=== PATIENT | male | born 1930 | race Caucasian/White ===

== ENCOUNTER 2016-09-03 12:26 | Emergency (ER) | payer MEDICARE, BC ==
[2016-09-03] MEDS ORDERED: traMADol 50 MG Tab ONE (12:40)
[2016-09-03] MEDS ORDERED: Cyclobenzaprine 10 MG Tab ONE (12:40)
[2016-09-03 12:56] VITALS: BP 134/80
--- NOTE | 2016-09-05 13:29 | EDM.PDOC ---
ED HPI LOWER BACK PAIN/INJURY - General Chief Complaint: General Stated Complaint: RIGHT SIDE PAIN LOWER AB/BACK Time Seen by Provider: 09/03/16 13:00 Source: Reports: Patient History Limitations: Reports: No limitations - History of Present Illness INITIAL COMMENTS - FREE TEXT/NARRATIVE: This is an 86yo M here for right flank pain. Patient denies any other symptoms but does state that movement worsens his symptoms and he can feel a sharp stabbing 10/10 pain that lasts briefly. Timing/Duration: Reports: Hour(s): Location: Reports: lower Quality: Reports: Sharp Severity: severe Place: home Improves with: Reports: None Worsens with: Reports: Movement - Related Data Allergies/ADRs: Allergies Allergy/AdvReac Type Severity Reaction Status Date / Time Sulfa (Sulfonamide Allergy Chest Pain Verified 02/16/16 00:14 Antibiotics) Home Meds: Home Meds Ciprofloxacin in D5W [Ciprofloxacin-D5W] 250 mg PO Q12H #20 cap 02/16/16 [Rx] PARoxetine [Paxil] 10 mg PO DAILY 02/16/16 [History] Past Medical History HEENT History: Reports: Hard of hearing, Impaired vision, Other (see below) Other HEENT History: Goiter Cardiovascular History: Reports: None Respiratory History: Reports: None Gastrointestinal History: Reports: None Genitourinary History: Reports: Prostate disorder, Renal calculus Psychiatric History: Reports: Anxiety Endocrine/Metabolic History: Reports: Other (see below) Other Endocrine/Metabolic History: Goiter Oncologic (Cancer) History: Reports: Prostate - Infectious Disease History Infectious Disease History: Reports: Chicken pox - Past Surgical History HEENT Surgical History: Reports: Tonsillectomy GI Surgical History: Reports: Colonoscopy Male Surgical History: Reports: Lithotripsy (ESWL), Prostatectomy Other Musculoskeletal Surgeries/Procedures:: no injuries from the falls reported. through the years back pain intermittantly with chiropractic intervention. no past PT intervention Other Oncologic Surgeries/Procedures: "bladder and prostate cancer" reported Social & Family History - Tobacco Use Smoking Status *Q: Former Smoker Years of Tobacco use: 40 Packs/Tins Daily: 1 Used Tobacco, but Quit: Yes Month Tobacco Last Used: 2005 - Alcohol Use Days Per Week of Alcohol Use: 2 Number of Drinks Per Day: 1 Total Drinks Per Week: 2 - Recreational Drug Use Recreational Drug Use: No ED ROS GENERAL - Review of Systems Review Of Systems: ROS reveals no pertinent complaints other than HPI. ED EXAM,LOWER BACK PAIN/INJURY - Physical Exam Exam: See Below (reproducible localized area of pain right lower back at iliac crest) Exam Limited By: No limitations General Appearance: alert, WD/WN, no apparent distress Ears: normal external exam Nose: normal inspection Throat/Mouth: Normal inspection Head: atraumatic, normocephalic Neck: normal inspection Respiratory/Chest: no respiratory distress, lungs clear, normal breath sounds Cardiovascular: normal peripheral pulses, regular rate, rhythm Back Exam: muscle spasm, other (muscle strain) Course - Vital Signs Last Recorded V/S: Last Vital Signs Temp 36.7 C 09/03/16 12:53 Pulse 89 09/03/16 12:53 Resp BP 134/80 09/03/16 12:53 Pulse Ox 98 09/03/16 12:53 - Orders/Labs/Meds Meds: Medications Discontinued Medications Generic Name Dose Route Start Last Admin Trade Name Freq PRN Reason Stop Dose Admin Cyclobenzaprine HCl 150 mg 09/03/16 12:40 Flexeril .ROUTE 09/03/16 12:41 .STK-MED ONE Tramadol HCl 500 mg 09/03/16 12:40 Ultram .ROUTE 09/03/16 12:41 .STK-MED ONE Departure - Departure Time of Disposition: 13:30 Disposition: Home, Self-Care 01 Condition: good Clinical Impression: Muscle strain Instructions: Cyclobenzaprine tablets, Back Pain, Adult, Tramadol tablets, Low Back Strain With Rehab-SportsMed Referrals: PCP,None [Primary Care Provider] - Forms: ED Department Discharge Additional Instructions: Take flexeril (cyclobenzaprine) 3 times a day daily with ibproufen every 6 hours. Only take flexeril at night if it makes you feel to sleepy or groggy during the day. Take 1 tab tramdaol (50mg) every 6 hours as needed for pain. Alternate with the flexeril and ibproufen
== END 2016-09-03 13:15 | disposition home or self-care (01) ==
LOC: LB.ED 12:26
DX: S39.011A Strain of muscle, fascia and tendon of abdomen, initial encounter (principal); M62.838 Other muscle spasm; F41.9 Anxiety disorder, unspecified; Z88.2 Allergy status to sulfonamides; Z98.890 Other specified postprocedural states; Z87.891 Personal history of nicotine dependence; X58.XXXA Exposure to other specified factors, initial encounter
CPT/HCPCS: 99283; A9270

== ENCOUNTER 2016-09-23 17:10 | Emergency (ER) | payer MEDICARE, BC ==
[2016-09-23 17:54] VITALS: BP 113/77
[2016-09-23] MEDS ORDERED: Diphtheria/Tetanus Toxoids,Adult (Td) 0.5 ML SDV IM ONE (18:07)
--- NOTE | 2016-09-23 18:13 | EDM.PDOC ---
ED HPI GENERAL MEDICAL PROBLEM - General Chief Complaint: General Stated Complaint: Fish hook Time Seen by Provider: 09/23/16 17:45 Source of Information: Reports: Patient History Limitations: Reports: No limitations - History of Present Illness INITIAL COMMENTS - FREE TEXT/NARRATIVE: Pt was fishing and accidental got fish hook stuck in the right middle finger. mild pain in the finger. Does not know when was the last tetanus shot. No other injuries. - Related Data Allergies Allergy/AdvReac Type Severity Reaction Status Date / Time Sulfa (Sulfonamide Allergy Chest Pain Verified 09/23/16 17:27 Antibiotics) Home Meds: Home Meds Ciprofloxacin in D5W [Ciprofloxacin-D5W] 250 mg PO Q12H #20 cap 02/16/16 [Rx] PARoxetine [Paxil] 10 mg PO DAILY 02/16/16 [History] Past Medical History HEENT History: Reports: Hard of hearing, Impaired vision, Other (see below) Other HEENT History: Goiter Cardiovascular History: Reports: None Respiratory History: Reports: None Gastrointestinal History: Reports: None Genitourinary History: Reports: Prostate disorder, Renal calculus Psychiatric History: Reports: Anxiety Endocrine/Metabolic History: Reports: Other (see below) Other Endocrine/Metabolic History: Goiter Oncologic (Cancer) History: Reports: Prostate - Infectious Disease History Infectious Disease History: Reports: Chicken pox - Past Surgical History HEENT Surgical History: Reports: Cataract surgery, Tonsillectomy GI Surgical History: Reports: Colonoscopy Male Surgical History: Reports: Lithotripsy (ESWL), Prostatectomy Other Musculoskeletal Surgeries/Procedures:: no injuries from the falls reported. through the years back pain intermittantly with chiropractic intervention. no past PT intervention Other Oncologic Surgeries/Procedures: "bladder and prostate cancer" reported Social & Family History - Tobacco Use Smoking Status *Q: Former Smoker Years of Tobacco use: 5 Packs/Tins Daily: 0.5 Used Tobacco, but Quit: Yes Month Tobacco Last Used: 2005 - Alcohol Use Days Per Week of Alcohol Use: 2 Number of Drinks Per Day: 1 Total Drinks Per Week: 2 - Recreational Drug Use Recreational Drug Use: No ED ROS GENERAL - Review of Systems Review Of Systems: See Below Constitutional: Denies: fever, chills HEENT: Denies: Contact Lenses, Rhinitis, Sinus problem Respiratory: Denies: Shortness of Breath, Cough, Sputum Cardiovascular: Denies: Chest pain, Lightheadedness GI/Abdominal: Denies: Abdominal pain, Nausea, Vomiting : Denies: discharge, dysuria Skin: Denies: pruritis, rash ED EXAM, GENERAL - Physical Exam Exam: See Below Exam Limited By: No limitations General Appearance: alert, WD/WN, no apparent distress Eye Exam: bilateral eye: EOMI, PERRL Ears: normal external exam, normal canal, hearing grossly normal, normal TMs Ear Exam: bilateral ear: auricle normal, canal normal, TM normal Head: atraumatic, normocephalic Neck: normal inspection, supple, non-tender, full range of motion Respiratory/Chest: no respiratory distress, lungs clear, normal breath sounds, no accessory muscle use, chest non-tender Cardiovascular: normal peripheral pulses, regular rate, rhythm, no edema, no gallop, no JVD, no murmur, no rub Extremities: normal inspection, normal range of motion, non-tender, no pedal edema, normal capillary refill, other (Right middle finger: there is fish hook embedded in the distal phalynx of the finger. mild tenderness around the hook.) Course - Vital Signs Text/Narrative:: The fish hook was removed under aseptic precautions under local anesthesia. Pt tolerated the procedure well. Simple antibiotic dressing done. Advised to keep the wound clean. Also he did receive tetanus injection today. Wound care discussed . Infection precautions discussed. Followup in the emergency room or clinic if there is infection or worsening pain in the finger. Last Recorded V/S: Last Vital Signs Temp 97.3 F 09/23/16 17:52 Pulse 76 09/23/16 17:52 Resp 16 09/23/16 17:52 BP 113/77 09/23/16 17:52 Pulse Ox 95 09/23/16 17:52 - Orders/Labs/Meds Orders: Active Orders 24 hr Category Date Time Status Vaccines to be Administered [RC] PER UNIT ROUTINE Care 09/23/16 18:07 Ordered Diphtheria/Tetanus Tox,Adult [Tenivac] Med 09/23/16 18:07 Once 0.5 ml IM .ONCE ONE Medication Orders Tetanus/Diphtheria Toxoids (Tenivac) 0.5 ml IM .ONCE ONE Stop: 09/23/16 18:08 Meds: Medications Generic Name Dose Route Start Last Admin Trade Name Freq PRN Reason Stop Dose Admin Tetanus/Diphtheria Toxoids 0.5 ml 09/23/16 18:07 Tenivac IM 09/23/16 18:08 .ONCE ONE Departure - Departure Time of Disposition: 18:25 Disposition: Home, Self-Care 01 Condition: good Clinical Impression: Fish hook injury of finger of right hand Forms: ED Department Discharge - Problem List & Annotations (1) Fish hook injury of finger of right hand SNOMED Code(s): 74765278 Code(s): S69.91XA - UNSP INJURY OF RIGHT WRIST, HAND AND FINGER(S), INIT ENCNTR Status: Acute Current Visit: Yes - Problem List Review Problem List Initiated/Reviewed/Updated: Yes - My Orders Last 24 Hours: My Active Orders 09/23/16 18:07 Vaccines to be Administered [RC] PER UNIT ROUTINE Diphtheria/Tetanus Tox,Adult [Tenivac] 0.5 ml IM .ONCE ONE - Assessment/Plan Last 24 Hours: My Active Orders 09/23/16 18:07 Vaccines to be Administered [RC] PER UNIT ROUTINE Diphtheria/Tetanus Tox,Adult [Tenivac] 0.5 ml IM .ONCE ONE Assessment:: Fish hook in right middle finger Plan: The fish hook was removed under aseptic precautions under local anesthesia. Pt tolerated the procedure well. Simple antibiotic dressing done. Advised to keep the wound clean. Also he did receive tetanus injection today. Wound care discussed . Infection precautions discussed. Followup in the emergency room or clinic if there is infection or worsening pain in the finger.
== END 2016-09-23 18:30 | disposition home or self-care (01) ==
LOC: LB.ED 17:10
DX: S69.91XA Unspecified injury of right wrist, hand and finger(s), initial encounter (principal); F41.9 Anxiety disorder, unspecified; Z23 Encounter for immunization; Z98.890 Other specified postprocedural states; Z98.49 Cataract extraction status, unspecified eye; Z88.2 Allergy status to sulfonamides; W45.8XXA Other foreign body or object entering through skin, initial encounter
CPT/HCPCS: 90471; 90714; 99282; 99283-25

== ENCOUNTER 2016-11-19 16:14 | Emergency (ER) | payer MEDICARE, BC ==
--- NOTE | 2016-11-19 17:17 | EDM.PDOC ---
ED HPI GENERAL MEDICAL PROBLEM - General Chief Complaint: General Stated Complaint: confusion Time Seen by Provider: 11/19/16 16:45 Source of Information: Reports: Patient History Limitations: Reports: No Limitations - History of Present Illness INITIAL COMMENTS - FREE TEXT/NARRATIVE: According to daughter , patient lives by himself and has had fall last night and has had a cut in the back of the scalp and bleed. She claims he has been c/ o headache and seems confused. No slurred speech. no difficulty with walking, no weakness in his extremities. No tingling or numbness. No blurry vision. Pt has had a fall about 2 wks ago and had a laceration over the right elbow, which apparently was infected and just done with keflex. He has a fever of 100.7F. Does c/o pain in his right elbow, but can move his elbow without any discomfort. No cough, abdominal pain, no nausea or vomiting. No other complaints. Onset Date: 11/18/16 Severity: Mild Improves with: Reports: None Worsens with: Reports: None Associated Symptoms: Reports: Confusion, Fever/Chills, Headaches. Denies: Chest Pain, Cough, Nausea/Vomiting, Rash, Seizure, Shortness of Breath, Syncope , Weakness - Related Data Allergies Allergy/AdvReac Type Severity Reaction Status Date / Time Sulfa (Sulfonamide Allergy Chest Pain Verified 11/19/16 16:36 Antibiotics) Home Meds: Home Meds Ciprofloxacin in D5W [Ciprofloxacin-D5W] 250 mg PO Q12H #20 cap 02/16/16 [Rx] PARoxetine [Paxil] 10 mg PO DAILY 02/16/16 [History] Past Medical History HEENT History: Reports: Hard of Hearing, Impaired Vision, Other (See Below) Other HEENT History: Goiter Cardiovascular History: Reports: None Respiratory History: Reports: None Gastrointestinal History: Reports: None Genitourinary History: Reports: Prostate Disorder, Renal Calculus Psychiatric History: Reports: Anxiety Endocrine/Metabolic History: Reports: Other (See Below) Other Endocrine/Metabolic History: Goiter Oncologic (Cancer) History: Reports: Prostate - Infectious Disease History Infectious Disease History: Reports: Chicken Pox - Past Surgical History HEENT Surgical History: Reports: Cataract Surgery, Tonsillectomy GI Surgical History: Reports: Colonoscopy Other Musculoskeletal Surgeries/Procedures:: no injuries from the falls reported. through the years back pain intermittantly with chiropractic intervention. no past PT intervention Other Oncologic Surgeries/Procedures: "bladder and prostate cancer" reported Social & Family History - Tobacco Use Smoking Status *Q: Former Smoker Years of Tobacco use: 5 Packs/Tins Daily: 0.5 Used Tobacco, but Quit: Yes Month Tobacco Last Used: 2005 - Alcohol Use Days Per Week of Alcohol Use: 2 Number of Drinks Per Day: 1 Total Drinks Per Week: 2 - Recreational Drug Use Recreational Drug Use: No ED ROS GENERAL - Review of Systems Review Of Systems: See Below Constitutional: Reports: Fever. Denies: Chills HEENT: Denies: Sinus Problem, Throat Pain, Throat Swelling Respiratory: Denies: Shortness of Breath, Wheezing, Cough, Sputum Cardiovascular: Denies: Chest Pain, Lightheadedness Endocrine: Denies: Fatigue GI/Abdominal: Denies: Abdominal Pain, Anorexia, Nausea, Vomiting : Denies: Dysuria, Flank Pain, Frequency Skin: Reports: Bruising, Erythema. Denies: Pruritis, Rash Neurological: Reports: Confusion, Headache. Denies: Dizziness, Numbness, Paresthesia, Syncope, Tingling, Tremors, Trouble Speaking, Weakness, Gait Disturbance ED EXAM, GENERAL - Physical Exam Exam: See Below Exam Limited By: No Limitations General Appearance: Alert, WD/WN, No Apparent Distress Eye Exam: Bilateral Eye: EOMI, PERRL Ears: Normal External Exam Ear Exam: Bilateral Ear: Auricle Normal, Canal Normal, TM normal Nose: Normal Inspection, Normal Mucosa, No Blood Throat/Mouth: Normal Inspection, Normal Lips, Normal Teeth, Normal Gums, Normal Oropharynx, Normal Voice, No Airway Compromise Head: Normocephalic, Other (ther is a hemostatic superifical laceration which is well aprroximated in the upper occipital region. Scabbed blood around. No erythema. No signs of infection). No: Facial Swelling, Facial Tenderness Neck: Normal Inspection, Supple, Non-Tender, Full Range of Motion Respiratory/Chest: No Respiratory Distress, Lungs Clear, Normal Breath Sounds, No Accessory Muscle Use, Chest Non-Tender Cardiovascular: Normal Peripheral Pulses, Regular Rate, Rhythm, No Edema, No Gallop, No JVD, No Murmur, No Rub Peripheral Pulses: 2+: Radial (L), Radial (R) Extremities: Pedal Edema, Other (right elbow: there is skin brusing all over the forearm and elbow. There is a irregular healing laceeration over the posterior elbow. Tenderness around the elbow to palpation and warmth felt. Good ROM at the elbow.) Neurological: Alert, Oriented, CN II-XII Intact, Normal Cognition, Normal Gait, Normal Reflexes, No Motor/Sensory Deficits Course - Vital Signs Text/Narrative:: Pt did have CT of the head Done, which shows a 3mm subdural hematoma in the right frontal region. His CBC is normal. Pt and daughter reassured that he has a small 3mm subdural hematoma. The injury was already about 18-20 hrs ago, the hematoma has not progressed. We will repeat CT head in next 24 hrs to make sure the hematoma is not progressing any further. I have advised not to use aspirin, advil or alleve for headache. Advised tylenol 500mg as needed. Also he has low grade fever, which probably is nonspecific , his white count is normal . HE does have bruising and secondary swelling of the right forearm and hand from recent laceration of the right elbow. There is localized infection, which should resolve with antibiotics ointment. He does not need oral antibiotics. Advised simple antibiotics dressing. Will repeat CT head tomorrow around 4PM. Pt advised to followup on Monday with Primary care provider. - Orders/Labs/Meds Orders: Active Orders 24 hr Category Date Time Status Head wo Cont [CT] Stat Exams 11/19/16 17:01 Taken Labs: Laboratory Tests 11/19/16 Range/Units 17:09 WBC 10.1 D (4.0-11.0) K/uL RBC 4.24 L (4.50-6.50) M/uL Hgb 12.7 L (13.0-18.0) g/dL Hct 37.0 L (40.0-54.0) % MCV 87 (76-96) fL MCH 30.0 (27.0-32.0) pg MCHC 34.3 (31.0-35.0) g/dL RDW 13.8 (11.0-16.0) % Plt Count 190 (150-400) K/uL MPV 9.9 (6.0-10.0) fL Neut % (Auto) 76.4 H (45.0-70.0) % Lymph % (Auto) 12.0 L (20.0-40.0) % Carbon % (Auto) 10.4 H (3.0-10.0) % Eos % (Auto) 0.9 L (1.0-5.0) % Baso % (Auto) 0.3 (0.0-0.5) % Neut # (Auto) 7.67 H (2.00-7.50) K/uL Lymph # (Auto) 1.21 L (1.50-4.00) K/uL Carbon # (Auto) 1.05 H (0.20-0.80) K/uL Eos # (Auto) 0.09 (0.04-0.40) K/uL Baso # (Auto) 0.03 (0.02-0.10) K/uL Departure - Departure Time of Disposition: 18:15 Disposition: Home, Self-Care 01 Condition: fair Clinical Impression: Subdural hematoma, Infection of left elbow - Discharge Information Referrals: PCP,None [Primary Care Provider] - Forms: ED Department Discharge Additional Instructions: Pt did have CT of the head Done, which shows a 3mm subdural hematoma in the right frontal region. His CBC is normal. Pt and daughter reassured that he has a small 3mm subdural hematoma. The injury was already about 18-20 hrs ago, the hematoma has not progressed. We will repeat CT head in next 24 hrs to make sure the hematoma is not progressing any further. I have advised not to use aspirin, advil or alleve for headache. Advised tylenol 500mg as needed. Also he has low grade fever, which probably is nonspecific , his white count is normal . HE does have bruising and secondary swelling of the right forearm and hand from recent laceration of the right elbow. There is localized infection, which should resolve with antibiotics ointment. He does not need oral antibiotics. Advised simple antibiotics dressing. Will repeat CT head tomorrow around 4PM. Pt advised to followup on Monday with Primary care provider. Care Plan Goals: Will come back tomorrow in the afternoon for another CT scan of the head between 4-5 pm. May take only plain Tylenol 500 mg every 4-6 hours when needed for headache. - Problem List & Annotations (1) Infection of left elbow SNOMED Code(s): 492458876, 551021841 Code(s): M00.9 - PYOGENIC ARTHRITIS, UNSPECIFIED Status: Acute Current Visit: Yes (2) Subdural hematoma SNOMED Code(s): 33139451 Code(s): I62.00 - NONTRAUMATIC SUBDURAL HEMORRHAGE, UNSPECIFIED Status: Acute Current Visit: Yes - Problem List Review Problem List Initiated/Reviewed/Updated: Yes - Assessment/Plan Assessment:: Small subdural hematoma Left elbow localized superficial infection Plan: Pt did have CT of the head Done, which shows a 3mm subdural hematoma in the right frontal region. His CBC is normal. Pt and daughter reassured that he has a small 3mm subdural hematoma. The injury was already about 18-20 hrs ago, the hematoma has not progressed. We will repeat CT head in next 24 hrs to make sure the hematoma is not progressing any further. I have advised not to use aspirin, advil or alleve for headache. Advised tylenol 500mg as needed. Head injury sign discussed. Also he has low grade fever, which probably is nonspecific , his white count is normal . HE does have bruising and secondary swelling of the right forearm and hand from recent laceration of the right elbow. There is localized infection, which should resolve with antibiotics ointment. He does not need oral antibiotics. Advised simple antibiotics dressing. Will repeat CT head tomorrow around 4PM. Pt advised to followup on Monday with Primary care provider.
[2016-11-19 21:29] VITALS: BP 126/68
--- NOTE | 2016-11-21 00:20 | CT ---
DATE OF SERVICE: 11/19/2016 CLINICAL DATA: Hit head by the dresser due to fall. UNENHANCED BRAIN CT Multislice acquisition through the brain without IV contrast was performed. No priors. There is significant motion artifact on the images through the base of the skull and middle cranial fossa. There is diffuse cerebral atrophy. There are periventricular lucencies bilaterally consistent with small vessel ischemic change. There is a crescentic shaped extra-axial CSF density in the right frontal parietal region consistent with a chronic subdural hematoma. It measures 4 mm in its maximum depth. No mass effect associated with it. No masses. No intracranial hemorrhage. No evidence of acute or subacute infarct. There is mucosal thickening in the ethmoid and frontal sinuses consistent with chronic sinusitis. No air-fluid levels. No osseous abnormalities. IMPRESSION: Abnormal exam. See above. The patient's physician was notified of the findings by telephone and by virtual radiologic preliminary radiology report. [id number] MTDD
== END 2016-11-19 18:15 | disposition home or self-care (01) ==
LOC: LB.ED 16:14
DX: S06.5X0A Traumatic subdural hemorrhage without loss of consciousness, initial encounter (principal); W19.XXXA Unspecified fall, initial encounter; L08.9 Local infection of the skin and subcutaneous tissue, unspecified; Z79.899 Other long term (current) drug therapy; Z87.891 Personal history of nicotine dependence; Z88.2 Allergy status to sulfonamides; Z91.81 History of falling
CPT/HCPCS: 36415; 70450; 85025; 99283; 99285-25

== ENCOUNTER 2016-12-16 13:03 | Emergency (ER) | payer MEDICARE, BC ==
[2016-12-16 13:41] VITALS: BP 133/77
== END 2016-12-16 14:20 | disposition critical access hospital (66) ==
LOC: LB.ED 13:03
DX: M79.651 Pain in right thigh (principal); F03.90 Unspecified dementia, unspecified severity, without behavioral disturbance, psychotic disturbance, mood disturbance, and anxiety; Z98.890 Other specified postprocedural states; Z88.2 Allergy status to sulfonamides; Z79.899 Other long term (current) drug therapy
CPT/HCPCS: 81001; 99284

== ENCOUNTER 2016-12-16 14:20 | Inpatient (IN) | payer SELFPAY ==
[2016-12-16] MEDS: levETIRAcetam 500 MG Tab PO SCH (20:21)
[2016-12-16] MEDS: Donepezil 5 MG Tab PO SCH (20:21)
[2016-12-16] MEDS: Acetaminophen 500 MG Tab PO PRN (20:21)
--- NOTE | 2016-12-17 01:21 | HP ---
The patient is admitted to respite care. CHIEF COMPLAINT: The patient enters the ER with a complaint of pain in his right leg, right thigh and the pain made it difficult for him to get up from a kneeling position. HISTORY OF PRESENT ILLNESS: The patient has had a recent subdural on the right in October of 2016 from a fall. He has a history of dementia and macular degeneration. He lives with his . His currently is under treatment for cancer. They do have a daughter nearby who is a social worker delinquency prevention who checks up on him. The patient presented to the ER today for placement as it has been very difficult on the family to maintain his care now that his is also very ill. The patient was therefore admitted to respite. As far as his leg goes, the patient had been working in his garden and when he went to get up, he had some discomfort in his right thigh, the pain has since resolved. This is not a new pain. He gets this every once in a while. As far as chronic medical problems, they are dementia and recent right subdural. MEDICATIONS: Include Aricept 5 mg p.o. at bedtime; Keppra 500 mg p.o. daily; Tylenol Extra Strength 500 mg q.4h. p.r.n. ALLERGIES: SULFA. REVIEW OF SYSTEMS: GENERAL: The patient denies any fever, weight loss, or fatigue. EYES: The patient denies any changes in vision. He does have some macular degeneration. EARS, NOSE, AND THROAT: No complaints. CARDIOVASCULAR: No complaints. RESPIRATORY: No coughing, wheezing, or shortness of breath. GI: No nausea, vomiting, diarrhea, constipation, or heartburn. : No dysuria. MUSCULOSKELETAL: No actual joint pain, however, he sometimes gets some pain in his thigh muscles. SKIN: No rashes or sores. NEURO: No headaches. No numbness. No focal weakness. PSYCH: No history of depression or anxiety. He does have some early dementia history. Family reports that he does have history with sundowning. PHYSICAL EXAMINATION: GENERAL: A well-developed, well-nourished male. He is alert and oriented to person, place, and has a general idea about the date. EYES: Normal conjunctiva, PERRLA, EOMI. ENT: TMs are normal bilaterally. He did have some wax on the left. NECK: Symmetrical. He has what appears to be a small goiter present. No bruits. LYMPH EXAM: Normal. LUNGS: Clear. HEART: Shows regular rate and rhythm. No murmurs, rubs, or gallops. ABDOMEN: Soft, nontender. No mass. No organomegaly. BACK: Without CVA or cord tenderness. EXTREMITIES: Show no clubbing or cyanosis and only trace edema bilaterally. No palpable cords. No palpable pain with in his lower extremities. ORTHO: Digits and nails appeared to be normal. His muscle tone and strength are normal. Joints show no inflammation or restriction of motion. SKIN: Shows no rashes or sores. NEURO EXAM: He does have a decreased gag. Otherwise, his cranial nerves appear to be intact. His DTRs are normal and symmetrical. He does have some frontal release. His Babinski is negative. PSYCH: His memory is spotty. His mood is appropriate. Judgment is spotty, and he is oriented to person, place, and general orientation to time. ASSESSMENT: The patient with: 1. Dementia. 2. Status post right subdural. 3. History of macular degeneration. PLAN: The patient will be admitted to respite for eventual long-term placement. He is followed by Dr. Moody, who will resume his care next business day. RENATE/YAZMIN GEORGINA
[2016-12-17] MEDS: Acetaminophen 500 MG Tab PO PRN (20:06)
[2016-12-17] MEDS: levETIRAcetam 500 MG Tab PO SCH (20:06)
[2016-12-17] MEDS: Donepezil 5 MG Tab PO SCH (20:06)
[2016-12-19] MEDS: Acetaminophen 500 MG Tab PO PRN (15:52)
--- NOTE | 2016-12-19 15:58 | PCM.PN ---
- General Info Date of Service: 12/19/16 Functional Status: Reports: tolerating diet, ambulating - Review of Systems General: Reports: Weakness Pulmonary: Reports: no symptoms Cardiovascular: Reports: No Symptoms Gastrointestinal: Reports: No symptoms Genitourinary: Reports: no symptoms Skin: Reports: no symptoms Neurological: Reports: Weakness, Other (Dementia) Psychiatric: Reports: no symptoms - Patient Data Vitals - most recent: Last Vital Signs Temp 36.8 C 12/18/16 20:00 Pulse 99 12/18/16 20:00 Resp 18 12/18/16 20:00 BP 128/74 12/18/16 20:00 Pulse Ox 99 12/18/16 20:00 Weight - most recent: 77.201 kg Med Orders - Current: Current Medications Acetaminophen (Tylenol Extra Strength) 500 mg PO Q4H PRN PRN Reason: Pain Last Admin: 12/19/16 15:52 Dose: 500 mg Donepezil HCl (Aricept) 5 mg PO BEDTIME FAIZAN Discontinued Medications Donepezil HCl (Aricept) 5 mg PO BEDTIME FAIZAN Last Admin: 12/17/16 20:06 Dose: 5 mg Levetiracetam (Keppra) 500 mg PO BEDTIME FAIZAN Last Admin: 12/17/16 20:06 Dose: 500 mg - Exam General: alert, no acute distress HEENT: Pupils equal Neck: supple Lungs: Clear to auscultation, Normal respiratory effort Cardiovascular: Regular Rate, Regular Rhythm Abdomen: bowel sounds present, soft, no tenderness Extremities: no tenderness/swelling Skin: warm, dry, intact Neurological: no new focal deficit Psy/Mental Status: alert, normal affect, normal mood - Problem List & Annotations (1) Dementia SNOMED Code(s): 61604855 Code(s): F03.90 - UNSPECIFIED DEMENTIA WITHOUT BEHAVIORAL DISTURBANCE Status: Chronic Priority: High Current Visit: Yes Qualifiers: Dementia type: vascular dementia (2) Weakness SNOMED Code(s): 73522989 Code(s): R53.1 - WEAKNESS Status: Chronic Priority: High Current Visit : Yes (3) Subdural hematoma SNOMED Code(s): 15269328 Code(s): I62.00 - NONTRAUMATIC SUBDURAL HEMORRHAGE, UNSPECIFIED Status: Chronic Priority: High Current Visit: Yes - Problem List Review Problem List Initiated/Reviewed/Updated: Yes - My Orders Last 24 Hours: My Active Orders 12/19/16 20:00 Donepezil [Aricept] 5 mg PO BEDTIME - Plan Plan:: Patient planning for discharge to care center tomorrow. We will have PT/OT evaluate. Patient counseled on plan of care and agrees at this time to go for physical therapy and rehabilitation during his stay in the care center.
[2016-12-19] MEDS ORDERED: Aluminum Hydroxide/Magnesium Hydroxide/Simethicone Susp 30 ML Cup ONE (16:34)
[2016-12-19] MEDS ORDERED: Magnesium Hydroxide 400 MG/5 ML Susp 30 ML Cup PO ONE (17:26)
[2016-12-19] MEDS ORDERED: Donepezil 5 MG Tab PO SCH (20:00)
[2016-12-20 19:20] VITALS: BP 106/65
== END 2016-12-20 18:05 | disposition home or self-care (01) | DRG 884 ==
LOC: LB.MS 14:20 → UNDOADMIN 14:20 → LB.MS 14:30 → UNDOADMIN 15:32 → LB.MS 15:32
PROVIDERS: ADMIT Internal Medicine; ATTEND Family Medicine
DX: F03.90 Unspecified dementia, unspecified severity, without behavioral disturbance, psychotic disturbance, mood disturbance, and anxiety (principal); I62.00 Nontraumatic subdural hemorrhage, unspecified; R53.1 Weakness; Z75.5 Holiday relief care
CPT/HCPCS: A9270-GY

== ENCOUNTER 2016-12-21 10:29 | Inpatient (IN) | payer MEDICARE, BC ==
--- NOTE | 2016-12-21 12:00 | PCM.HP ---
H&P History of Present Illness - General Date of Service: 12/21/16 Admit Problem/Dx: Admission Diagnosis/Problem Admission Diagnosis/Problem Hematoma Source of Information: Patient, Family - History of Present Illness Initial Comments - Free Text/Narative: This is a pleasant 86yo M admitted to the floor for increasing headache, confusion, and weakness of the legs. He was diagnosed with a subdural hematoma on November 18 that showed progression on his Head CT on November 20 and then increased progression on November 30 without further symptoms and family and patient elected for close observation and monitoring. Repeat CT was done on December 05 showing stable findings. The patient began to have increasing headaches , lower extremity weakness and confusion the past few days and another CT head was done showing a rebleed. Onset of Symptoms: Reports: Gradual Duration of Symptoms: Reports: Week(s): Location: Reports: Head Associated Symptoms: Reports: Confusion, Headaches, Weakness - Related Data Allergies/Adverse Reactions: Allergies Allergy/AdvReac Type Severity Reaction Status Date / Time Sulfa (Sulfonamide Allergy Chest Pain Verified 12/21/16 13:15 Antibiotics) Home Medications: Home Meds Acetaminophen [Tylenol Extra Strength] 500 mg PO Q6H PRN 12/21/16 [History] Donepezil [Aricept] 5 mg PO BEDTIME 12/21/16 [History] Past Medical History HEENT History: Reports: Hard of Hearing, Impaired Vision, Other (See Below) Other HEENT History: Goiter Cardiovascular History: Reports: None Respiratory History: Reports: None Gastrointestinal History: Reports: None Genitourinary History: Reports: Prostate Disorder, Renal Calculus Psychiatric History: Reports: Anxiety Endocrine/Metabolic History: Reports: Other (See Below) Other Endocrine/Metabolic History: Goiter Oncologic (Cancer) History: Reports: Prostate - Infectious Disease History Infectious Disease History: Reports: Chicken Pox - Past Surgical History HEENT Surgical History: Reports: Cataract Surgery, Tonsillectomy GI Surgical History: Reports: Colonoscopy Other Musculoskeletal Surgeries/Procedures:: no injuries from the falls reported. through the years back pain intermittantly with chiropractic intervention. no past PT intervention. fall status: with subdural hematoma communication on status with nursing staff today. vitals checked and orientation: 12/19/16 Other Oncologic Surgeries/Procedures: "bladder and prostate cancer" reported Social & Family History - Tobacco Use Smoking Status *Q: Former Smoker Years of Tobacco use: 5 Packs/Tins Daily: 0.5 Used Tobacco, but Quit: Yes Month Tobacco Last Used: jul Second Hand Smoke Exposure: No - Caffeine Use Caffeine Use: Reports: Coffee - Alcohol Use Days Per Week of Alcohol Use: 2 Number of Drinks Per Day: 1 Total Drinks Per Week: 2 - Recreational Drug Use Recreational Drug Use: No H&P Review of Systems - Review of Systems: Review Of Systems: See Below General: Reports: Weakness HEENT: Reports: Headaches Pulmonary: Reports: No Symptoms Cardiovascular: Reports: No Symptoms Gastrointestinal: Reports: No Symptoms Genitourinary: Reports: No Symptoms Musculoskeletal: Reports: No Symptoms Skin: Reports: No Symptoms Psychiatric: Reports: No Symptoms Neurological: Reports: Confusion, Weakness, Gait Disturbance Exam - Exam Exam: See Below - Vital Signs Weight: 77.201 kg - Exam General: Alert, Cooperative HEENT: PERRLA, Conjunctiva Clear Neck: Supple, Trachea Midline Lungs: Clear to Auscultation, Normal Respiratory Effort Cardiovascular: Regular Rate, Regular Rhythm Abdomen: Normal Bowel Sounds, Soft Back Exam: Normal Inspection Extremities: Normal Inspection Peripheral Pulses: 1+: Dorsalis Pedis (L), Dorsalis Pedis (R) Skin: Warm, Dry, Intact Neurological: Abnormal Gait Neuro Extensive - Mental Status: Alert, Normal Mood/Affect, Disorientation to Time Neuro Extensive - Motor, Sensory, Reflexes: Abnormal Motor Psychiatric: Alert, Normal Affect, Normal Mood - Patient Data Result Diagrams: 12/21/16 13:17 12/21/16 13:17 *Q Meaningful Use (ADM) - VTE *Q VTE Criteria *Q: - Stroke *Q Stroke Criteria *Q: - AMI *Q AMI Criteria *Q: - Problem List (1) Headache SNOMED Code(s): 87780738 ICD Code: R51 - HEADACHE Status: Acute Current Visit: Yes Qualifiers: Headache chronicity pattern: unspecified pattern Intractability: not intractable (2) Confusion SNOMED Code(s): 613637590 ICD Code: R41.0 - DISORIENTATION, UNSPECIFIED Status: Acute Priority: High Current Visit: Yes (3) Subdural hematoma SNOMED Code(s): 39940350 ICD Code: I62.00 - NONTRAUMATIC SUBDURAL HEMORRHAGE, UNSPECIFIED Status: Chronic Priority: High Current Visit: Yes (4) Weakness SNOMED Code(s): 68306093 ICD Code: R53.1 - WEAKNESS Status: Chronic Priority: High Current Visit : Yes Problem List Initiated/Reviewed/Updated: Yes Orders Last 24hrs: Active Orders 24 hr Category Date Time Status Patient Status [ADT] Routine ADT 12/21/16 11:33 Active Oxygen Therapy [RC] PRN Care 12/21/16 11:33 Active Up With Assistance [RC] ASDIRECTED Care 12/21/16 11:33 Active VTE/DVT Education [RC] Per Unit Routine Care 12/21/16 11:33 Active Vital Signs [RC] Q4H Care 12/21/16 11:33 Active OT Evaluation and Treatment [CONS] Routine Cons 12/21/16 12:00 Ordered PT Evaluation and Treatment [CONS] Routine Cons 12/21/16 12:00 Ordered Heart Healthy Diet [DIET] Diet 12/21/16 Dinner Ordered Head wo Cont [CT] Routine Exams 12/21/16 Taken CBC WITH AUTO DIFF [HEME] Routine Lab 12/21/16 11:33 Ordered COMPREHENSIVE METABOLIC PN,CMP [CHEM] Routine Lab 12/21/16 11:33 Ordered INR,PT,PROTHROMBIN TIME [COAG] Routine Lab 12/21/16 11:33 Uncollected Assessment/Plan Comment:: Patient admitted for close monitoring and observation. Patient and family to discuss plan of care and Neurosurgery intervention as discussed.
[2016-12-21] MEDS ORDERED: Acetaminophen 500 MG Tab PO PRN (14:49)
[2016-12-21] MEDS ORDERED: Magnesium Hydroxide 400 MG/5 ML Susp 30 ML Cup PO PRN (14:51)
[2016-12-21 17:07] VITALS: BP 114/64
--- NOTE | 2016-12-21 17:21 | CT ---
DATE OF SERVICE: 12/21/16 CLINICAL DATA: Nontraumatic subdural hemorrhage, unspecified UNENHANCED BRAIN CT: Comparison is made to a prior exam dated 12/05/16. A right-sided subdural hematoma is again seen. It has increased in volume from the prior exam and measured greater than 2.5 cm in its maximum thickness. There are hyperdense foci within it. This is consistent with a re-bleed. There is progressive mass effect associated with it and there is minimal midline shift to the left. The exam is otherwise unchanged. IMPRESSION: Increasing volume of right subdural hematoma with findings consistent with re-bleed and increasing mass effect. The patient's physician was notified of the finding by telephone and by [facility] preliminary radiology report. [id number] [facility]
--- NOTE | 2016-12-21 19:19 | PCM.DCSUM1 ---
Discharge Summary - Hospital Course Brief History: This is an 86yo M with a subdural hematoma rebleed and increasing confusion, weakness and headache the past few days admitted for close monitoring, and further management or transfer as needed and discussed with family. - Discharge Data Discharge Date: 12/21/16 Discharge Disposition: DC/Tfer to Acute Hospital 02 Condition: Good - Discharge Diagnosis/Problem(s) (1) Headache SNOMED Code(s): 99245523 ICD Code: R51 - HEADACHE Status: Acute Current Visit: Yes Qualifiers: Headache chronicity pattern: unspecified pattern Intractability: not intractable (2) Confusion SNOMED Code(s): 262433871 ICD Code: R41.0 - DISORIENTATION, UNSPECIFIED Status: Acute Priority: High Current Visit: Yes (3) Subdural hematoma SNOMED Code(s): 88245412 ICD Code: I62.00 - NONTRAUMATIC SUBDURAL HEMORRHAGE, UNSPECIFIED Status: Chronic Priority: High Current Visit: Yes (4) Weakness SNOMED Code(s): 94341102 ICD Code: R53.1 - WEAKNESS Status: Chronic Priority: High Current Visit : Yes - Patient Summary/Data Consults: Consultations 12/21/16 12:00 OT Evaluation and Treatment [CONS] Routine Please Evaluate and Treat. OT Reason for Consult: ADL's This query below is only for informational purposes and is not editable. Admission Diagnosis/Problem: Hematoma PT Evaluation and Treatment [CONS] Routine Please Evaluate and Treat. PT Reason for Consult: Ambulation This query below is only for informational purposes and is not editable. Admission Diagnosis/Problem: Hematoma - Discharge Plan Home Medications: Home Meds Acetaminophen [Tylenol Extra Strength] 500 mg PO Q6H PRN 12/21/16 [History] Donepezil [Aricept] 5 mg PO BEDTIME 12/21/16 [History] - Discharge Summary/Plan Comment DC Time >30 min.: Yes Discharge Summary/Plan Comment: Patient transfer to [facility] under Dr. Corona Neurosurgery. Patient is stable and after discussion with family, he will go via personal vehicle and daughter Lillian will drive to [place] and cherry picker operator [place] and continue to [place]. Family agree with plan of care. They will go to the [place] ER and Neurosurgery will be waiting. - General Info Date of Service: 06/21/17 Functional Status: Reports: tolerating diet - Review of Systems General: Reports: Weakness HEENT: Reports: headaches Pulmonary: Reports: no symptoms Cardiovascular: Reports: No Symptoms Gastrointestinal: Reports: No symptoms Musculoskeletal: Reports: no symptoms Skin: Reports: no symptoms Neurological: Reports: Confusion, Headache, Difficulty Walking, Weakness Psychiatric: Reports: no symptoms - Patient Data Vitals - Most Recent: Last Vital Signs Temp 36.7 C 12/21/16 17:00 Pulse 71 12/21/16 17:00 Resp 16 12/21/16 17:00 BP 114/64 12/21/16 17:00 Pulse Ox 98 12/21/16 17:00 Weight - Most Recent: 77.201 kg Lab Results - Last 24 hrs: Laboratory Results - last 24 hr 12/21/16 12/21/16 12/21/16 Range/Units 13:17 13:17 13:17 WBC 8.1 (4.0-11.0) K/uL RBC 4.35 L (4.50-6.50) M/uL Hgb 12.9 L (13.0-18.0) g/dL Hct 38.5 L (40.0-54.0) % MCV 89 (76-96) fL MCH 29.7 (27.0-32.0) pg MCHC 33.5 (31.0-35.0) g/dL RDW 14.5 (11.0-16.0) % Plt Count 162 (150-400) K/uL MPV 9.9 (6.0-10.0) fL Neut % (Auto) 70.0 (45.0-70.0) % Lymph % (Auto) 18.0 L (20.0-40.0) % [place] % (Auto) 9.5 (3.0-10.0) % Eos % (Auto) 2.1 (1.0-5.0) % Baso % (Auto) 0.4 (0.0-0.5) % Neut # (Auto) 5.66 (2.00-7.50) K/uL Lymph # (Auto) 1.46 L (1.50-4.00) K/uL [place] # (Auto) 0.77 (0.20-0.80) K/uL Eos # (Auto) 0.17 (0.04-0.40) K/uL Baso # (Auto) 0.03 (0.02-0.10) K/uL PT 10.4 (9.0-11.5) sec INR 1.0 (1.0-3.5) Sodium 141 (136-145) mmol/L Potassium 4.4 (3.5-5.1) mmol/L Chloride 103 (98-107) mmol/L Carbon Dioxide 30.0 (21.0-32.0) mmol/L Anion Gap 12.4 (5.0-15.0) mmol/L BUN 17 D (8-26) mg/dL Creatinine 0.83 (0.70-1.30) mg/dL Est Cr Clr Drug Dosing 68.47 mL/min Estimated GFR (MDRD) > 60 (>60) MLS/MIN BUN/Creatinine Ratio 20.5 (6-25) Glucose 125 H (74-100) mg/dL Calcium 10.0 (8.5-10.1) mg/dL Total Bilirubin 0.9 (0.0-1.0) mg/dL AST 18 (15-37) U/L ALT 18 (12-78) U/L Alkaline Phosphatase 116 (46-116) U/L Total Protein 6.8 (6.4-8.2) g/dL Albumin 3.4 (3.4-5.0) g/dL Globulin 3.4 (2.2-4.2) g/dL Albumin/Globulin Ratio 1.0 (0.8-2.0) Med Orders - Current: Current Medications Acetaminophen (Tylenol Extra Strength) 500 mg PO Q6H PRN PRN Reason: Pain Donepezil HCl (Aricept) 5 mg PO BEDTIME FAIZAN Levetiracetam (Keppra) 500 mg PO BID FAIZAN Magnesium Hydroxide (Milk Of Magnesia) 30 ml PO DAILY PRN PRN Reason: Constipation - Exam General: Reports: alert, cooperative, no acute distress HEENT: Reports: Pupils equal, Pupils reactive Neck: Reports: supple Lungs: Reports: Clear to auscultation, Normal respiratory effort Cardiovascular: Reports: Regular Rate, Regular Rhythm Abdomen: Reports: bowel sounds present, soft, no tenderness Back Exam: Reports: Normal Inspection Extremities: Reports: no edema Skin: Reports: warm, dry, intact Neurological: Reports: other (lower leg weakness b/l, confusion, headaches) Psy/Mental Status: Reports: alert, normal affect, normal mood *Q Meaningful Use (DIS) - VTE *Q VTE Criteria *Q: - Stroke *Q Stroke Criteria *Q: - AMI *Q AMI Criteria *Q:
[2016-12-21] MEDS ORDERED: Donepezil 5 MG Tab PO SCH (20:00)
[2016-12-21] MEDS ORDERED: levETIRAcetam 500 MG Tab PO SCH (20:00)
== END 2016-12-21 19:45 | DRG 66 ==
LOC: LB.CLINIC 10:29 → LB.MS 11:21 → UNDOADMIN 11:21 → LB.MS 11:33
PROVIDERS: ADMIT Family Medicine; ATTEND Family Medicine
DX: I62.00 Nontraumatic subdural hemorrhage, unspecified (principal); R53.1 Weakness; R41.0 Disorientation, unspecified; R51 Headache; Z85.46 Personal history of malignant neoplasm of prostate; Z85.51 Personal history of malignant neoplasm of bladder; H91.90 Unspecified hearing loss, unspecified ear; H54.7 Unspecified visual loss; Z87.891 Personal history of nicotine dependence; Z88.2 Allergy status to sulfonamides
CPT/HCPCS: 36415; 70450; 80053; 85025; 85610; 97165-GO

== ENCOUNTER 2016-12-28 09:29 | Inpatient (IN) | payer MEDICARE, BC ==
[2016-12-28] MEDS ORDERED: Tuberculin, PPD 5 Units/0.1 ML 1 ML MDV IDERM ONE (16:44)
[2016-12-28] MEDS ORDERED: Bisacodyl 10 MG Supp RECTAL PRN (16:47)
[2016-12-28] MEDS ORDERED: Calcium Carbonate 500 MG Tab.Chew PO PRN (16:47)
[2016-12-28] MEDS ORDERED: Polyethylene Glycol 3350 Powder 17 GM Packet PO PRN (16:47)
[2016-12-28] MEDS ORDERED: Aluminum Hydroxide/Magnesium Hydroxide/Simethicone Susp 30 ML Cup PO PRN (16:47)
[2016-12-28] MEDS ORDERED: Acetaminophen 325 MG Tab PO PRN (16:47)
[2016-12-28] MEDS: Donepezil 5 MG Tab PO SCH (18:33)
[2016-12-28] MEDS: QUEtiapine 25 MG Tab PO PRN (18:34)
--- NOTE | 2016-12-29 00:54 | HP ---
CHIEF COMPLAINT: The patient is transferred from [facility] after dionisio hole placed for subdural hematoma. The patient is transferred for swing bed. PAST MEDICAL HISTORY: 1. 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 2. Status post mechanical fall, 11/16. 3. Brain compression. 4. Subfalcine herniation, improved. 5. Encephalopathy. 6. Left-sided hemiparesis, improving. 7. History of prostate carcinoma, status post prostatectomy. HISTORY OF PRESENT ILLNESS: An 86-year-old gentleman who was transferred from [facility] today after evacuation by dionisio holes of a right acute on chronic subdural hematoma. This occurred from a fall apparently on November 18. The patient was transferred to [place] and evacuation was done. The patient had apparently worsening encephalopathy with left-sided weakness, and CT did reveal a 3 mm shift. This had improved postoperatively. Postoperatively, his left-sided weakness improved, his confusion is improving. Now transported back here due to gait imbalance and risk of being at home for physical therapy and continue strengthening. The patient currently does not have any complaints. MEDICATIONS UPON TRANSFER: Aricept 5 mg daily, milk thistle 1 tab daily, Senokot 2 tabs b.i.d., Tylenol Extra Strength 500 mg q.6 hours p.r.n. ALLERGIES: SULFA. FAMILY HISTORY: Noncontributory. SOCIAL HISTORY: He is . Prior to his October accident, was living in an apartment with his . Nonsmoker. REVIEW OF SYSTEMS: The patient's 12-point review of systems is negative. PHYSICAL EXAMINATION: GENERAL: A pleasant gentleman, in no apparent distress. VITAL SIGNS: Stable. NEUROLOGIC: The patient is alert, he is oriented to person but not place and cannot tell me the time. He does recall the president. He recalls 0/3 at 5 minutes. He can do serial 3' s quickly and accurately but has difficulty with serial 7's. Strength is symmetric in the upper and lower extremities. Gait was not tested. Reflexes are symmetric and brisk bilaterally. Cranial nerves III through XII are intact. Visual romero are not tested. HEENT : Exam is negative. There is no adenopathy or thyromegaly. CHEST: Clear. CARDIAC: Regular rate and rhythm without gallop or rub. ABDOMEN: Benign. : Exam deferred. Neurologic as above. IMPRESSION: 1. 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 2. Encephalopathy. 3. Left-sided weakness, improving. 4. Status post mechanical fall, 11/16. 5. History of prostatic carcinoma, status post prostatectomy. PLAN: The patient will be admitted into a swing bed. Physical therapy, occupational therapy, and hospice social worker. Continue his Aricept currently. The patient I do not believe is competent tonight to give me a code status, so will need to discuss this with family tomorrow. DVT prophylaxis, we will use compression stockings. Cannot use anticoagulation due to his dionisio hole and previous subdural. YULIA/YAZMIN GEORGINA
[2016-12-29] MEDS: Sennosides 8.6 MG Tab PO SCH ×3 (01:04→20:46)
[2016-12-29] MEDS: Donepezil 5 MG Tab PO SCH ×2 (01:04→20:46)
[2016-12-29] MEDS ORDERED: Pneumococcal Polyvalent-23 Vaccine 0.5 ML SDV IM ONE (18:53)
[2016-12-29] MEDS ORDERED: Sennosides 8.6 MG Tab ONE (20:48)
[2016-12-29] MEDS: LORazepam 0.5 MG Tab PO PRN (21:47)
[2016-12-30] MEDS: QUEtiapine 25 MG Tab PO PRN (04:50)
[2016-12-30] MEDS: Sennosides 8.6 MG Tab PO SCH ×2 (07:56→20:00)
[2016-12-30] MEDS: QUEtiapine 25 MG Tab PO SCH (20:00)
[2016-12-30] MEDS: Donepezil 5 MG Tab PO SCH (20:00)
[2016-12-31] MEDS: Sennosides 8.6 MG Tab PO SCH ×2 (08:00→20:23)
[2016-12-31] MEDS: Donepezil 5 MG Tab PO SCH (20:22)
[2016-12-31] MEDS: QUEtiapine 25 MG Tab PO SCH (20:23)
[2017-01-01] MEDS: Sennosides 8.6 MG Tab PO SCH ×2 (08:15→20:21)
[2017-01-01] MEDS: QUEtiapine 25 MG Tab PO SCH (20:21)
[2017-01-01] MEDS: Donepezil 5 MG Tab PO SCH (20:21)
[2017-01-02] MEDS: Sennosides 8.6 MG Tab PO SCH ×2 (09:29→21:00)
--- NOTE | 2017-01-02 12:10 | PCM.PN ---
- General Info Date of Service: 01/02/17 Subjective Update: Patient denies any complaints today. He is unable to recall where he is at today , and suggested it was '' then later ' then 2016 and was correct that it was December but unsure of the exact number. He denies any headache or pain. Denies any weakness or symptoms. Functional Status: Reports: tolerating diet, ambulating - Review of Systems General: Reports: No Symptoms HEENT: Reports: no symptoms Pulmonary: Reports: no symptoms Cardiovascular: Reports: No Symptoms Gastrointestinal: Reports: No symptoms Genitourinary: Reports: no symptoms Musculoskeletal: Reports: no symptoms Skin: Reports: no symptoms Neurological: Reports: Pre-Existing Deficit (weakness) Psychiatric: Reports: agitation (when discussing that he wants to go home) - Patient Data Vitals - most recent: Last Vital Signs Temp 36.2 C 01/02/17 08:00 Pulse 73 01/02/17 08:00 Resp 16 01/02/17 08:00 BP 102/65 01/02/17 08:00 Pulse Ox 96 01/02/17 08:00 Weight - most recent: 64.954 kg Med Orders - Current: Current Medications Acetaminophen (Tylenol) 650 mg PO Q4H PRN PRN Reason: Pain (Mild 1-3)/fever Al Hydroxide/Mg Hydroxide (Mag-Al Plus) 30 ml PO Q4H PRN PRN Reason: Nausea Bisacodyl (Dulcolax) 10 mg RECTAL DAILY PRN PRN Reason: Constipation Calcium Carbonate/Glycine (Tums) 500 mg PO Q2HR PRN PRN Reason: Abdominal Pain Donepezil HCl (Aricept) 5 mg PO BEDTIME [facility] Last Admin: 01/01/17 20:21 Dose: 5 mg Lorazepam (Ativan) 0.5 mg PO Q6H PRN PRN Reason: Agitation Last Admin: 12/29/16 21:47 Dose: 0.5 mg Polyethylene Glycol (Miralax) 17 gm PO DAILY PRN PRN Reason: Constipation Quetiapine Fumarate (Seroquel) 25 mg PO BEDTIME [facility] Last Admin: 01/01/17 20:21 Dose: 25 mg Senna (Senna) 17.2 mg PO BID [facility] Last Admin: 01/02/17 09:29 Dose: 8.6 mg Senna/Docusate Sodium (Senna Plus) 1 tab PO BID PRN PRN Reason: Constipation Discontinued Medications Pneumococcal Polyvalent Vaccine (Pneumovax 23) 0.5 ml IM .ONCE ONE Stop: 12/29/16 18:54 Quetiapine Fumarate (Seroquel) 25 mg PO Q6H PRN PRN Reason: Agitation Last Admin: 12/30/16 04:50 Dose: 25 mg Senna (Senna) Confirm Administered Dose 8.6 mg .ROUTE .STK-MED ONE Stop: 12/29/16 20:49 Last Admin: 12/29/16 23:01 Dose: Not Given Tuberculin PPD (Aplisol) 5 unit IDERM ONETIME ONE Stop: 12/28/16 16:45 - Exam General: alert, cooperative, no acute distress. No: oriented HEENT: Pupils equal, Pupils reactive, EOMI Neck: supple Lungs: Clear to auscultation, Normal respiratory effort Cardiovascular: Regular Rate, Regular Rhythm Abdomen: bowel sounds present Back Exam: Normal Inspection Extremities: no edema Peripheral Pulses: 1+: Dorsalis Pedis (L), Dorsalis Pedis (R) Skin: warm, dry, intact Neurological: no new focal deficit Psy/Mental Status: alert, normal affect, normal mood - Problem List & Annotations (1) Dementia SNOMED Code(s): 01297036 Code(s): F03.90 - UNSPECIFIED DEMENTIA WITHOUT BEHAVIORAL DISTURBANCE Status: Chronic Priority: High Current Visit: Yes Qualifiers: Dementia type: vascular dementia (2) Subdural hematoma SNOMED Code(s): 98787748 Code(s): I62.00 - NONTRAUMATIC SUBDURAL HEMORRHAGE, UNSPECIFIED Status: Chronic Priority: High Current Visit: Yes (3) Weakness SNOMED Code(s): 99018924 Code(s): R53.1 - WEAKNESS Status: Chronic Priority: High Current Visit : Yes (4) History of dionisio hole surgery SNOMED Code(s): 250565345 Code(s): Z98.890 - OTHER SPECIFIED POSTPROCEDURAL STATES Status: Acute Priority: High Current Visit: Yes - Problem List Review Problem List Initiated/Reviewed/Updated: Yes - Plan Plan:: Discussed patient placement. Family would like to discuss options. One option was for and patient to stay in the [facility]. Second was for patient to go to the Care center. Patient would like to just go home. Family present and discussion with patient present. We will discussed care planning for the possibility of going to the [facility] with his .
[2017-01-02] MEDS: Donepezil 5 MG Tab PO SCH (21:00)
[2017-01-02] MEDS: QUEtiapine 25 MG Tab PO SCH (21:02)
[2017-01-03] MEDS: QUEtiapine 25 MG Tab PO SCH (19:19)
[2017-01-03] MEDS: Donepezil 5 MG Tab PO SCH (19:19)
[2017-01-03] MEDS: Sennosides 8.6 MG Tab PO SCH ×2 (19:20)
[2017-01-04] MEDS: Sennosides 8.6 MG Tab PO SCH ×2 (08:41→21:37)
[2017-01-04] MEDS: Donepezil 5 MG Tab PO SCH (21:37)
[2017-01-04] MEDS: QUEtiapine 25 MG Tab PO SCH (21:37)
[2017-01-05] MEDS: Sennosides 8.6 MG Tab PO SCH ×2 (08:08→20:50)
[2017-01-05] MEDS: QUEtiapine 25 MG Tab PO SCH (20:49)
[2017-01-05] MEDS: Donepezil 5 MG Tab PO SCH (20:49)
[2017-01-05] MEDS: LORazepam 0.5 MG Tab PO PRN (20:50)
[2017-01-06] MEDS: Sennosides 8.6 MG Tab PO SCH ×2 (08:35→20:50)
[2017-01-06] MEDS: LORazepam 0.5 MG Tab PO PRN ×2 (08:39→20:49)
[2017-01-06] MEDS: Donepezil 5 MG Tab PO SCH (20:49)
[2017-01-06] MEDS: QUEtiapine 25 MG Tab PO SCH (20:50)
[2017-01-07] MEDS: Sennosides 8.6 MG Tab PO SCH ×2 (09:02→21:35)
[2017-01-07] MEDS: QUEtiapine 25 MG Tab PO SCH (21:34)
[2017-01-07] MEDS: Donepezil 5 MG Tab PO SCH (21:35)
[2017-01-07] MEDS: LORazepam 0.5 MG Tab PO PRN (21:35)
[2017-01-08] MEDS: Sennosides 8.6 MG Tab PO SCH ×2 (08:41→20:58)
[2017-01-08] MEDS: Donepezil 5 MG Tab PO SCH (20:58)
[2017-01-08] MEDS: LORazepam 0.5 MG Tab PO PRN (20:58)
[2017-01-08] MEDS: QUEtiapine 25 MG Tab PO SCH (20:59)
[2017-01-09] MEDS: Sennosides 8.6 MG Tab PO SCH ×2 (08:55→20:16)
--- NOTE | 2017-01-09 13:25 | PCM.PN ---
- General Info Date of Service: 01/09/17 Subjective Update: This is a 87yo M who is pending placement in a care center. He has refused to wear the wander guard despite having wandered into the care center and wanted to leave the hospital on his own accord. He has fluctuating mood but has been able to be redirected. He has stated he has had thoughts of self harm in the past but denies any of these thoughts during his stay. He does not appreciate having to stay and wants to go home. Family have been present daily for support and planning. Functional Status: Reports: tolerating diet, ambulating - Review of Systems General: Reports: Weakness HEENT: Reports: no symptoms Pulmonary: Reports: no symptoms Cardiovascular: Reports: No Symptoms Gastrointestinal: Reports: No symptoms Genitourinary: Reports: no symptoms Musculoskeletal: Reports: no symptoms Skin: Reports: no symptoms Neurological: Reports: Other (dementia) Psychiatric: Reports: agitation - Patient Data Vitals - most recent: Last Vital Signs Temp 36.5 C 01/09/17 10:00 Pulse 91 01/09/17 10:00 Resp 16 01/09/17 10:00 BP 113/61 01/09/17 10:00 Pulse Ox 97 01/08/17 09:20 Weight - most recent: 73.936 kg Med Orders - Current: Current Medications Acetaminophen (Tylenol) 650 mg PO Q4H PRN PRN Reason: Pain (Mild 1-3)/fever Al Hydroxide/Mg Hydroxide (Mag-Al Plus) 30 ml PO Q4H PRN PRN Reason: Nausea Bisacodyl (Dulcolax) 10 mg RECTAL DAILY PRN PRN Reason: Constipation Calcium Carbonate/Glycine (Tums) 500 mg PO Q2HR PRN PRN Reason: Abdominal Pain Donepezil HCl (Aricept) 5 mg PO BEDTIME FAIZAN Last Admin: 01/08/17 20:58 Dose: 5 mg Lorazepam (Ativan) 0.5 mg PO Q6H PRN PRN Reason: Agitation Last Admin: 01/08/17 20:58 Dose: 0.5 mg Polyethylene Glycol (Miralax) 17 gm PO DAILY PRN PRN Reason: Constipation Quetiapine Fumarate (Seroquel) 25 mg PO BEDTIME FAIZAN Last Admin: 01/08/17 20:59 Dose: 25 mg Senna (Senna) 17.2 mg PO BID FAIZAN Last Admin: 01/09/17 08:55 Dose: 8.6 mg Senna/Docusate Sodium (Senna Plus) 1 tab PO BID PRN PRN Reason: Constipation Discontinued Medications Pneumococcal Polyvalent Vaccine (Pneumovax 23) 0.5 ml IM .ONCE ONE Stop: 12/29/16 18:54 Last Admin: 01/02/17 18:51 Dose: 0.5 ml Quetiapine Fumarate (Seroquel) 25 mg PO Q6H PRN PRN Reason: Agitation Last Admin: 12/30/16 04:50 Dose: 25 mg Senna (Senna) Confirm Administered Dose 8.6 mg .ROUTE .STK-MED ONE Stop: 12/29/16 20:49 Last Admin: 12/29/16 23:01 Dose: Not Given Tuberculin PPD (Aplisol) 5 unit IDERM ONETIME ONE Stop: 12/28/16 16:45 Last Admin: 01/02/17 18:48 Dose: 5 unit - Exam General: alert, oriented, cooperative HEENT: Pupils equal, Pupils reactive, EOMI Neck: supple Lungs: Clear to auscultation, Normal respiratory effort Cardiovascular: Regular Rate, Regular Rhythm Abdomen: bowel sounds present Extremities: no edema Peripheral Pulses: 2+: Dorsalis Pedis (L), Dorsalis Pedis (R) Skin: warm, dry, intact Neurological: no new focal deficit Psy/Mental Status: alert, normal affect, normal mood - Problem List & Annotations (1) Dementia SNOMED Code(s): 59832555 Code(s): F03.90 - UNSPECIFIED DEMENTIA WITHOUT BEHAVIORAL DISTURBANCE Status: Chronic Priority: High Current Visit: Yes Qualifiers: Dementia type: 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 Family would like to discuss options. One option was for and patient to stay in the [facility]. Second was for patient to go to the Care center. Patient would like to just go home. Family present and discussion with patient present. We will discussed care planning for the possibility of going to the [facility] with his . [facility] is no longer a viable option as does not want to stay there. We will have to plan for the care center and evaluate elopement risk. Patient agreeable to try wanderguard after family and care meeting was done Tues. We will monitor and determine placement.
[2017-01-09] MEDS ORDERED: QUEtiapine 25 MG Tab PO PRN (17:48)
[2017-01-09] MEDS: Donepezil 5 MG Tab PO SCH (20:15)
[2017-01-09] MEDS: QUEtiapine 25 MG Tab PO SCH (20:17)
[2017-01-09] MEDS: LORazepam 0.5 MG Tab PO PRN (20:18)
[2017-01-10] MEDS: Sennosides 8.6 MG Tab PO SCH ×2 (08:38→20:46)
[2017-01-10] MEDS: LORazepam 0.5 MG Tab PO PRN (20:45)
[2017-01-10] MEDS: Donepezil 5 MG Tab PO SCH (20:46)
[2017-01-10] MEDS: QUEtiapine 25 MG Tab PO SCH (20:46)
[2017-01-11] MEDS: Sennosides 8.6 MG Tab PO SCH (08:07)
[2017-01-11] MEDS: QUEtiapine 25 MG Tab PO SCH (19:38)
[2017-01-11] MEDS: Donepezil 5 MG Tab PO SCH (19:38)
[2017-01-11] MEDS: LORazepam 0.5 MG Tab PO PRN (19:54)
[2017-01-11] MEDS ORDERED: Sennosides 8.6 MG Tab PO PRN (20:00)
[2017-01-12] MEDS: Donepezil 5 MG Tab PO SCH (20:08)
[2017-01-12] MEDS: QUEtiapine 25 MG Tab PO SCH (20:08)
[2017-01-13] MEDS: Donepezil 5 MG Tab PO SCH (19:48)
[2017-01-13] MEDS: QUEtiapine 25 MG Tab PO SCH (19:49)
[2017-01-14] MEDS: Donepezil 5 MG Tab PO SCH (19:51)
[2017-01-14] MEDS: QUEtiapine 25 MG Tab PO SCH (19:53)
[2017-01-15] MEDS: Donepezil 5 MG Tab PO SCH (19:35)
[2017-01-15] MEDS: QUEtiapine 25 MG Tab PO SCH (19:36)
[2017-01-16 09:28] VITALS: BP 107/68
--- NOTE | 2017-01-16 16:23 | PCM.DCSUM1 ---
Discharge Summary - Discharge Data Discharge Date: 01/16/17 Discharge Disposition: DC/Tfer to [facility] Condition: Good - Discharge Diagnosis/Problem(s) (1) Dementia SNOMED Code(s): 88580731 ICD Code: F03.90 - UNSPECIFIED DEMENTIA WITHOUT BEHAVIORAL DISTURBANCE Status: Chronic Priority: High Qualifiers: Dementia type: vascular dementia (2) Subdural hematoma SNOMED Code(s): 67673460 ICD Code: I62.00 - NONTRAUMATIC SUBDURAL HEMORRHAGE, UNSPECIFIED Status: Chronic Priority: High (3) Weakness SNOMED Code(s): 33858628 ICD Code: R53.1 - WEAKNESS Status: Chronic Priority: High (4) History of dionisio hole surgery SNOMED Code(s): 015884122 ICD Code: Z98.890 - OTHER SPECIFIED POSTPROCEDURAL STATES Status: Acute Priority: High - Patient Summary/Data Consults: Consultations 12/28/16 15:11 PT Evaluation and Treatment [CONS] Routine Please Evaluate and Treat. PT Reason for Consult: Strengthening This query below is only for informational purposes and is not editable. Admission Diagnosis/Problem: Cerebral embolism 12/28/16 15:12 OT Evaluation and Treatment [CONS] Routine Please Evaluate and Treat. OT Reason for Consult: Strengthening This query below is only for informational purposes and is not editable. Admission Diagnosis/Problem: Cerebral embolism - Patient Instructions Diet: Usual Diet as Tolerated Driving: Do Not Drive - Discharge Plan Prescriptions/Med Rec: Docusate Sodium/Sennosides [Senna Plus] 1 tab PO BID PRN #60 tablet PRN Reason: Constipation LORazepam [Ativan] 0.5 mg PO Q6H PRN #60 tablet PRN Reason: Agitation QUEtiapine [SEROquel] 25 mg PO BEDTIME PRN #30 tablet PRN Reason: Agitation QUEtiapine [SEROquel] 25 mg PO BEDTIME #60 tablet Home Medications: Home Meds Acetaminophen [Tylenol Extra Strength] 500 mg PO Q6H PRN 12/21/16 [History] Milk Thistle 175 mg PO DAILY 12/28/16 [History] Sennosides [Senokot] 2 tab PO BID 12/28/16 [History] Acetaminophen [Tylenol] 650 mg PO Q4H PRN #0 tablet 01/14/17 [Rx] Alum Hydrox/Mag Hydrox/Simeth [Mag-Al Plus] 30 ml PO Q4H PRN #0 cup 01/14/17 [Rx ] Bisacodyl [Dulcolax] 10 mg RECTAL DAILY PRN #0 supp 01/14/17 [Rx] Calcium Carbonate [Tums] 500 mg PO Q2HR PRN #0 tab.chew 01/14/17 [Rx] Docusate Sodium/Sennosides [Senna Plus] 1 tab PO BID PRN #60 tablet 01/14/17 [Rx ] Donepezil [Aricept] 5 mg PO BEDTIME tablet 01/14/17 [Rx] LORazepam [Ativan] 0.5 mg PO Q6H PRN #60 tablet 01/14/17 [Rx] Polyethylene Glycol 3350 [MiraLAX] 17 gm PO DAILY PRN #0 packet 01/14/17 [Rx] QUEtiapine [SEROquel] 25 mg PO BEDTIME #60 tablet 01/14/17 [Rx] QUEtiapine [SEROquel] 25 mg PO BEDTIME PRN #30 tablet 01/14/17 [Rx] - Discharge Summary/Plan Comment DC Time >30 min.: Yes Discharge Summary/Plan Comment: Counseled on plan of care. Family will lease picker and transfer to [facility]. Meds reconciled. No concerns per family. - Patient Data Vitals - Most Recent: Last Vital Signs Temp 36.8 C 01/16/17 09:27 Pulse 95 01/16/17 09:27 Resp 14 01/16/17 09:27 BP 107/68 01/16/17 09:27 Pulse Ox 98 01/16/17 09:27 Weight - Most Recent: 75.931 kg Med Orders - Current: Current Medications Discontinued Medications Acetaminophen (Tylenol) 650 mg PO Q4H PRN PRN Reason: Pain (Mild 1-3)/fever Al Hydroxide/Mg Hydroxide (Mag-Al Plus) 30 ml PO Q4H PRN PRN Reason: Nausea Last Admin: 01/14/17 19:59 Dose: 30 ml Bisacodyl (Dulcolax) 10 mg RECTAL DAILY PRN PRN Reason: Constipation Last Admin: 01/15/17 10:35 Dose: 10 mg Calcium Carbonate/Glycine (Tums) 500 mg PO Q2HR PRN PRN Reason: Abdominal Pain Donepezil HCl (Aricept) 5 mg PO BEDTIME [facility] Last Admin: 01/15/17 19:35 Dose: 5 mg Lorazepam (Ativan) 0.5 mg PO Q6H PRN PRN Reason: Agitation Last Admin: 01/11/17 19:54 Dose: 0.5 mg Pneumococcal Polyvalent Vaccine (Pneumovax 23) 0.5 ml IM .ONCE ONE Stop: 12/29/16 18:54 Last Admin: 01/02/17 18:51 Dose: 0.5 ml Polyethylene Glycol (Miralax) 17 gm PO DAILY PRN PRN Reason: Constipation Last Admin: 01/15/17 08:25 Dose: 17 gm Quetiapine Fumarate (Seroquel) 25 mg PO Q6H PRN PRN Reason: Agitation Last Admin: 12/30/16 04:50 Dose: 25 mg Quetiapine Fumarate (Seroquel) 25 mg PO BEDTIME [facility] Last Admin: 01/15/17 19:36 Dose: 25 mg Quetiapine Fumarate (Seroquel) 25 mg PO BEDTIME PRN PRN Reason: Agitation Senna (Senna) 17.2 mg PO BID [facility] Last Admin: 01/11/17 08:07 Dose: 17.2 mg Senna (Senna) Confirm Administered Dose 8.6 mg .ROUTE .STK-MED ONE Stop: 12/29/16 20:49 Last Admin: 12/29/16 23:01 Dose: Not Given Senna (Senna) 8.6 mg PO BEDTIME PRN PRN Reason: Constipation Senna/Docusate Sodium (Senna Plus) 1 tab PO BID PRN PRN Reason: Constipation Last Admin: 01/14/17 20:00 Dose: 1 tab Tuberculin PPD (Aplisol) 5 unit IDERM ONETIME ONE Stop: 12/28/16 16:45 Last Admin: 01/02/17 18:48 Dose: 5 unit *Q Meaningful Use (DIS) - VTE *Q VTE Criteria *Q: VTE Pharmacological Contraindications *Q: Cerebral Hemorrhag Infarc - Stroke *Q Stroke Criteria *Q: - AMI *Q AMI Criteria *Q:
== END 2017-01-16 12:10 | DRG 91 ==
LOC: LB.MS 09:29 → UNDOADMIN 09:29 → LB.MS 14:35
PROVIDERS: ADMIT Family Medicine; ATTEND Family Medicine
DX: R26.89 Other abnormalities of gait and mobility (principal); G93.40 Encephalopathy, unspecified; G93.5 Compression of brain; R53.1 Weakness; F03.90 Unspecified dementia, unspecified severity, without behavioral disturbance, psychotic disturbance, mood disturbance, and anxiety; S06.5X9D Traumatic subdural hemorrhage with loss of consciousness of unspecified duration, subsequent encounter; W19.XXXD Unspecified fall, subsequent encounter; Z98.890 Other specified postprocedural states; Z85.46 Personal history of malignant neoplasm of prostate; Z88.2 Allergy status to sulfonamides; Z79.899 Other long term (current) drug therapy; Z23 Encounter for immunization
CPT/HCPCS: 86580; 90732; 97110-GP; 97116-GP; 97161-GP; 97165-GO; 97530-GO; 97535-GO; A9270-GY; G0009

== ENCOUNTER 2018-01-16 13:21 | Emergency (ER) | payer MEDICARE, BC ==
[2018-01-16 14:02] VITALS: BP 148/69
--- NOTE | 2018-01-16 17:53 | CR ---
CLINICAL DATA: Hand pain. No injury. LEFT HAND, 16 JANUARY 2018: No priors. Metallic ring obscures a portion of the proximal phalanx of the 4th digit. There is diffuse osteopenia. 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 There are multiple osseous densities adjacent to the carpometacarpal joint of the thumb, most likely representing loose bodies or old bony avulsions. There is a 14 mm subchondral cyst in the base of the 1st metacarpal. There are multiple other small subchondral cysts. There is soft tissue calcification in the region of the radioulnar triangular fibrocartilage complex. No other significant findings. [id number] [facility]
--- NOTE | 2018-01-16 21:50 | ER ---
HISTORY OF PRESENT ILLNESS: An 88-year-old male who comes in with his daughter with complaints of left hand pain that started today when he woke up and tried to get out of bed, his hand was very painful. He is pointing to the area at the base of the thumb and involving the webspace between the thumb and index finger on the left hand. The patient denies any falls or injuries. 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 The patient felt fine when he went to bed. His daughter noticed that he was shaky when he was first getting out of bed this morning and she was concerned about dehydration as well. The patient feels that the shakiness has resolved and he thinks it could have been due to the pain he was having. OBJECTIVE: GENERAL APPEARANCE: The patient is awake and alert, pleasant. VITAL SIGNS: Reviewed. The patient's blood pressure 148/69, he is afebrile, pulse 69, respirations 16. Physical exam, examining the left hand reveals mild swelling around the base of the left thumb. This area is also quite tender with even light touch, pushing the thumb down on the tip is also significantly tender with guarding. The patient has tenderness also with mild palpation of the web space. The index finger is nontender and the wrist is nontender. Palpation of the dorsal aspect of the patient's hand is nontender as well. X-RAY: X-ray was obtained of the patient's left hand. There is chronic degenerative changes. There is no acute fracture today. LABS: Include a CBC which is normal. Comprehensive metabolic panel is also unremarkable. Kidney function is good. Electrolytes are good. Blood sugar is 114. DIAGNOSIS: Tendinitis/mild sprain of the left hand. TREATMENT PLAN: A thumb spica wrist brace was given to the patient. He is to remove this only for washing purposes for the next few days and then start weaning off the brace if his symptoms are improving. Ice could be applied for a couple of days intermittently. The patient is instructed to take Aleve 1 tablet b.i.d. for a few days and then wean off it as his symptoms should improve. Followup should be in a week if his condition is not resolving or of course, if his condition should get worse, he is to call back for further evaluation. CRS/MODL /[id number]
== END 2018-01-16 14:55 | disposition home or self-care (01) ==
LOC: LB.ED 13:21
DX: S63.91XA Sprain of unspecified part of right wrist and hand, initial encounter (principal); M77.9 Enthesopathy, unspecified; X50.9XXA Other and unspecified overexertion or strenuous movements or postures, initial encounter
CPT/HCPCS: 36415; 73130-LT; 80053; 85025; 99283

== ENCOUNTER 2018-01-17 17:41 | Inpatient (IN) | payer MEDICARE, BC ==
[2018-01-17] MEDS ORDERED: Acetaminophen 325 MG Tab PO PRN (20:30)
[2018-01-17] MEDS ORDERED: Polyethylene Glycol 3350 Powder 17 GM Packet PO PRN (20:46)
[2018-01-17] MEDS: Sodium Chloride 0.9% 1,000 ML IV SCH (21:47)
[2018-01-17] MEDS: DONEPEZIL 5 MG PO SCH (22:30)
[2018-01-17] MEDS: QUETIAPINE 25 MG PO SCH (22:30)
--- NOTE | 2018-01-18 01:15 | ER ---
HPI: An 88-year-old male here on January 17, 2018, who comes in with his daughter by ambulance with complaints of weakness that started this afternoon. The patient was doing fine earlier today. In fact, he was seen yesterday in the emergency room for left hand pain, which was diagnosed as tendinitis or a sprain. He was given a wrist brace. His daughter tells me that he did fine until mid afternoon. She checked on him and he was sitting on the toilet and was unable to stand or walk. With significant assistance, he was helped to a couch and they called for further evaluation and an ambulance was called. The patient has not been coughing. He has not been vomiting. They have noticed that he feels warm. OBJECTIVE: GENERAL APPEARANCE: The patient is awake and alert. He tells me that he feels fine. VITAL SIGNS: Reviewed. Initial temp is 102.1, blood pressure 113/75, pulse 97, O2 sats are 92% on room air. Physical exam, oral mucous membranes are just slightly dry. Tonsils not enlarged or injected. Pharynx not inflamed. NECK: Supple. LUNGS: Clear. CARDIAC: Heart sounds distinct without any obvious murmur. ABDOMEN: Soft and nontender. Bowel sounds are present. SKIN: Warm and dry. EXTREMITIES: There is no lower extremity edema noted. Examining the patient's left hand reveals mild swelling, it is persistent with some redness involving the knuckle at the base of the index finger. This entire area is tender to touch. SKIN: Otherwise intact. LABS: Include a CBC showing a normal white count. Comprehensive metabolic panel shows a sodium level of 135, potassium 4.0. Kidney function looks well maintained. Lactic acid is normal. Glucose is 138 and alkaline phosphatase is 128. Chest x-ray is obtained. It shows some chronic changes. I do not see any obvious pneumonia. DIAGNOSIS: Viral illness with weakness. TREATMENT PLAN: We will admit the patient to the hospital for inpatient care. CRS/MODL /[id number]
--- NOTE | 2018-01-18 02:09 | ADMIT ---
HPI: An 88-year-old male who was admitted through the emergency room for weakness and fever. His symptoms developed late this afternoon about 4 or 4:30. He was found sitting on the bathroom stool and he could not get up. The patient needed assistance of two to get to his bed. He has not had any problems with shortness of breath, wheezing, or chest pain. He has not been nauseated and has not vomited. Lab workup in the ER included a CBC and CMP as well as a lactic acid. They were basically normal. His white count was normal. Chest x-ray shows some chronic changes. I do not see any obvious pneumonia. The patient does have some pain and redness involving the left hand, which he was actually seen for yesterday and diagnosed with tendinitis or a mild sprain. He will be admitted for monitoring mainly for weakness and will be given some IV fluids. We will do a repeat CBC in the morning, and we will get a urine sample as well. CRS/MODL /[id number]
[2018-01-18] MEDS: Sodium Chloride 0.9% 1,000 ML IV SCH ×2 (07:59→18:02)
--- NOTE | 2018-01-18 08:26 | CR ---
DATE OF SERVICE: 01/17/18 CLINICAL DATA: fever - ill patient. PORTABLE CHEST: Comparison is made to a prior exam dated 02/16/16. The heart size is normal. There is calcification of the aortic arch. 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 There is increased density in the left lung base consistent with basilar atelectasis or infiltrate. Pneumonia should be considered. The right lung is clear. No pneumothorax. No pleural effusions. [id number] [facility]
[2018-01-18] MEDS: Tamsulosin 0.4 MG Cap.ER**PT OWN PO SCH (08:47)
[2018-01-18] MEDS: DONEPEZIL 5 MG PO SCH (19:55)
[2018-01-18] MEDS: QUETIAPINE 25 MG PO SCH (19:56)
--- NOTE | 2018-01-18 21:31 | HP ---
HPI: The patient is admitted for weakness and fever. He was unable to stand and walk at home. His daughter found him in the bathroom, unable to get off the stool due to weakness. He was shaky at that time. The patient was evaluated in the emergency room and the initial lab work looked okay. Chest x-ray showed some chronic changes which I believe are atelectasis. Lactic acid was negative. He was admitted last evening for IV fluids, and we will repeat some of the lab work in the morning. PAST MEDICAL HISTORY: Includes BPH. He had a fall about a year ago with a subdural hematoma. He did end up needing to have this drained with bur holes put into the skull. History of bladder cancer, remote; history of prostate cancer; history of hypotension; and history of goiter. SURGICAL HISTORY: Appendectomy and craniotomy due to the subdural hematoma. CODE STATUS: At this point is full code with the patient's daughter says they are working on a living will and this will be addressed as a part of it. OBJECTIVE: GENERAL APPEARANCE: The patient is awake, he is pleasant in nature and talkative. VITAL SIGNS: Taken this morning at 9:24 revealed a blood pressure of 101/69. He is afebrile, pulse is 73, O2 sats are 94% on room air. Physical exam, oral mucous membranes are slightly dry. Tonsils not enlarged or injected. Pharynx not inflamed. NECK: Supple. LUNGS: Clear with mildly reduced air exchange throughout the lung romero. CARDIAC: Heart sounds distinct. I do not hear any murmurs. ABDOMEN: Soft, nontender. Bowel sounds are present. SKIN: Warm and dry. TREATMENT PLAN: The patient was given IV fluids overnight and his condition significantly improved. At this point, my shift is ending. I will discharge him to the oncoming physician, who is Dr. Carpenter. CRS/MODL
[2018-01-19] MEDS: Sodium Chloride 0.9% 1,000 ML IV SCH (04:22)
[2018-01-19] MEDS: Tamsulosin 0.4 MG Cap.ER**PT OWN PO SCH (07:27)
[2018-01-19] MEDS: Piperacillin/Tazobactam 3.375 GM in Sodium Chloride 0.9% 50 ML IV SCH ×3 (11:56→22:25)
[2018-01-19] MEDS: DONEPEZIL 5 MG PO SCH (20:34)
[2018-01-19] MEDS: QUETIAPINE 25 MG PO SCH (20:34)
[2018-01-20] MEDS: Piperacillin/Tazobactam 3.375 GM in Sodium Chloride 0.9% 50 ML IV SCH ×2 (04:00→10:24)
[2018-01-20] MEDS: Tamsulosin 0.4 MG Cap.ER**PT OWN PO SCH (07:16)
[2018-01-20 09:38] VITALS: BP 115/75
--- NOTE | 2018-01-20 13:49 | DISCH ---
ADMITTING DIAGNOSES: 1. Confusion. 2. Dehydration. 3. Left hand swelling. DISCHARGE DIAGNOSES: 1. Confusion, resolved. 2. Dehydration, resolved. 3. Left hand cellulitis, improving. HOSPITALIZATION SUMMARY: This elderly gentleman was brought into the emergency room for evaluation. He was found on the floor in his home, confused, unable to get. 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 He also had a tactile temperature on Monday and had left hand pain. The patient's confusion improved with IV hydration. X-rays were done of his left hand, which showed only arthritic changes. Laboratory did not reveal an elevated white count and blood cultures were negative. However, the patient's left hand swelling improved with IV antibiotics. He was on Zosyn for 24 hours and the left hand swelling and redness improved significantly, but did not resolve. PLAN: He was sent home on Augmentin and clindamycin. Instructions to stay well hydrated. Family members, especially daughter and son-in-law, will go by frequently to make sure that the patient is doing well and they will follow up on Monday for further evaluation. DISCHARGE MEDICATIONS: He would resume prior medications and I added Augmentin 875 b.i.d. and clindamycin 600 mg t.i.d. because the patient is allergic to Bactrim. ALLYSON /[id number]
--- NOTE | 2018-01-21 17:47 | PN ---
DATE OF VISIT: 01/19/2018 This 88-year-old gentleman was admitted yesterday for dehydration. 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 He was admitted and presented to the emergency room where he was hydrated and he has improved but he has some swelling noted in his left hand. He denies any pain. Apparently the symptoms started a few days ago when he complained of pain in the hand. Now he denies any pain, but there is increased swelling. He is ambulating well. He is eating well. He is otherwise significantly improved. PHYSICAL EXAMINATION: VITAL SIGNS: Temperature is 98.2, pulse 68, blood pressure 148/78, his respiratory rate is 16, and he is oxygenating at 94% on room air. GENERAL: Well developed, well nourished, alert, cooperative. No acute distress. LUNGS: Good air movement. No wheezes. HEART: Regular rate and rhythm. Normal S1, S2. GI: Abdomen is soft. No localized tenderness. No guarding or rebound. EXTREMITIES: The left arm is swollen. He is able to flex and extend all of his fingers. There is an area of induration and warmth noted on the wrist. Review of the chart shows that on admission he had an x-ray of the hand which showed arthritic changes. He also had a uric acid done which was not elevated. He does not have an elevated white count nor a left shift and his lactate was not elevated. ASSESSMENT: 1. Dehydration, this appears to have had resolved. 2. Left hand swelling, erythema and induration, this is likely due to cellulitis. PLAN: Repeat blood cultures and a lactate and then initiate him on Zosyn. Also, a D-dimer to further evaluate for the possibility of blood clot, other venous blood clots; and we will initiate him on Zosyn and and continue to follow. ISABELLA/YAZMIN /[id number]
== END 2018-01-20 12:16 | disposition home or self-care (01) | DRG 641 ==
LOC: LB.ED 17:41 → UNDOADMOB 19:26 → LB.MS 19:26 → UNDOADMOB 20:18 → LB.MS 20:18 → OBSVTOIN 20:19 → INTOOBSV 20:19
PROVIDERS: ADMIT Physician Assistant; ATTEND Physician Assistant
DX: E86.0 Dehydration (principal); L03.114 Cellulitis of left upper limb; R41.0 Disorientation, unspecified; R53.1 Weakness; R50.9 Fever, unspecified; N40.0 Benign prostatic hyperplasia without lower urinary tract symptoms; Z85.51 Personal history of malignant neoplasm of bladder; Z88.1 Allergy status to other antibiotic agents
CPT/HCPCS: 36415; 71045; 80053; 81001; 83605; 84550; 85025; 85027; 85379; 99285; A0425; A0429; A9270-GY; J2543; J7030; J7050